=== PATIENT | male | born 1960 | race Caucasian/White ===

== ENCOUNTER 2024-12-18 08:54 | Emergency (ER) | payer OTHER, SELFPAY ==
[2024-12-18 08:58] VITALS: BP 171/98
--- NOTE | 2024-12-18 11:17 | ED.MUSCINJ ---
HPI-Injury
General
Chief Complaint: Musculo-Skeletal Complaint
Source: patient
Exam Limitations: none
Time Seen by Provider: 12/18/24 11:09
Nursing documentation reviewed up to this point in time: agreed with
History of Present Illness-Injury
Initial Injury comments:
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 He was also crawling around his
attic several days in the past week cleaning it out. 3 days ago right knee 'suddenly blew up' and became painful. He has been icing it but no improvement. R leg has become significantly discolored and swollen and warm from lower 1/3 of thigh down to
the ankle sock line. Color brawny red, warm patient states pain is 1/10 at this time. He denies chest pain or trouble breathing
Past History
Past History
ED Past Medical History: None
ED Past Surgical History: None
Social History
Tobacco: Non-smoker
Alcohol: None
Drug: None
Living: with family
Employment: Employed ([employer])
Review of Systems
Review of Systems
Allergies reviewed?: Yes
All Other Systems: ROS reviewed and negative except as documented in HPI and ROS
Constitutional: Denies fever
Respiratory: Denies trouble breathing
Cardiac: Denies chest pain
Musculoskeletal: Reports other (pre patellar swelling right knee)
Skin: Reports other (bruising, discoloration, warmth RLE)
Phy Exam
Physical Exam
Physical Exam:
GENERAL: No acute distress. A&Ox3.
CONSTITUTIONAL: Afebrile.
RESPIRATORY: Regular respirations, nonlabored, lungs clear.
CARDIOVASCULAR: Regular rate and rhythm, no murmurs, no rubs.
MUSCULOSKELETAL: Large right pre patellar effusion. Moves with ease. Well perfused.
SKIN: Warm, dry, pink. R leg significantly discolored, brawny red, ecchymotic, is swollen and warm from lower 1/3 of thigh down to the ankle sock line. Foot is unaffected. States pain is 1/10 at this time.
PSYCH: Normal mood and affect. Well kept, interactive and appropriate
NEUROLOGIC: Awake, alert and oriented. No focal neurological deficits
Injury Course
Orders/Labs/Results
Orders:
Orders
12/18/24 11:19
US Periph Venous LOWER Ext RT Urgent
Comment:
Reason For Exam: swelling, red, warm after injury
Procedures
Incision/Drainage/Joint Aspiration
R prepatellar bursa:
Anethesia: 1% Lidocaine with Epi
Preparation: cleaned with Betadine
Type of procedure: drain
Nature of site: hematoma
Description of abscess: involves one area
How much fluid was obtained?: number in mls (5)
Fluid description: bloody
Treatment: antibiotics started and bandaid applied
Additional information:
Most likely clotted so not much drainage. Ron wrap applied
MDM/Problems Addressed
Differential Diagnosis Includes:
The Differential Diagnosis includes, in no particular order and is not limited to:
- Knee bursitis
- Traumatic hematoma
- Contusion
- Joint effusion
- Infection (septic arthritis)
MDM/Problems Addressed:
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 He was also crawling around his
attic several days in the past week cleaning it out. 3 days ago right knee 'suddenly blew up' and became painful. He has been icing it but no improvement. R leg has become significantly discolored and swollen and warm from lower 1/3 of thigh down to
the ankle sock line. Color brawny red, warm patient states pain is 1/10 at this time. He denies chest pain or trouble breathing
Afebrile
US neg for DVT
There are no infectious signs or symptoms, patient moves the knee well.
It does not appear that the right matson abrasion has anything to do with the prepatellar effusion and swelling and discoloration of the leg
History and exam is consistent with a prepatellar bursitis either inflammatory or traumatic
Aspiration of king blood is consistent with traumatic effusion and this is most likely cause of the lower extremity swelling and discoloration.
After aspiration, Band-Aid applied, Ron wrap applied, distal neurovascular intact, patient did state that pain was somewhat relieved.
Patient out of bed and ambulating well
*Pulse Oximetry
SaO2: 98
Oxygen Mode of Delivery: Room air
Patient hypoxic: not evaluated
*Critical Care Note
Total Time (30-74mins, 75-104mins- exclusive of procedures): Not Applicable
ED Attending Note
-
Portions of this chart may have been created with voice recognition software.� Occasional wrong word or��sound alike� substitutions may have occurred due to the inherent limitations of voice recognition software.
Discharge Plan
Departure
Patient Disposition: Home (Routine Discharge)
Date of Disposition: 12/18/24
Time of Disposition: 12:36
Patient with high blood pressure during this ER visit?: No
Condition: Good
Discharge Problem:
traumatic bursitis right knee, Contusion of right lower leg
Instructions: Contusion (DC), Bursitis - ED discharge instructions
Prescriptions:
New
cephalexin 500 mg capsule
500 mg PO QID 7 Days Qty: 28 0RF
No Action
hydrocodone-acetaminophen 1 TABLET tablet
1 tab PO Q4HPRN PRN (Reason: severe pain) Qty: 20 0RF
cephalexin [Keflex] 500 MG capsule
500 mg PO Q6 Qty: 28 0RF
Referrals:
NONE,* [Family Provider, Internal Medicine]
Ritting,Jigar, MD [Active, Orthopedics] - As needed
Activity Restrictions/Additional Instructions:
As we discussed, wear the Ron wrap or your knee brace until the swelling and discomfort are gone.
Your ultrasound shows no clot.
I sent a prescription to your pharmacy for Keflex to take 500 mg 4 times a day for 7 days
At the end of a long day but cold compress on the knee 20 minutes off and on
Seek medical care immediately for signs of infection which may include increasing redness, swelling, pain, fever, pus drainage
Elevate the leg to the level of your heart was slightly higher when you are resting to help minimize the swelling
Interventions
Interventions:
*Risk Screen - Suicide Last Done: 12/18/24 08:59
*Neglect/Abuse Screening Last Done: 12/18/24 08:59
*Nursing Disposition Last Done: 12/18/24 13:11
ED-Musculoskeletal Assessment Last Done: 12/18/24 10:31
Discharge Date and Time
Discharge Date/Time: 12/18/24 13:11
Print Language: KINYARWANDA
[2024-12-18 13:03] VITALS: BP 146/91
== END 2024-12-18 13:11 | disposition home or self-care (01) ==
LOC: EMR 08:54
PROVIDERS: EMERGENCY PHYSICIAN Emergency Medicine
DX: S80.01XA Contusion of right knee, initial encounter (principal); S80.11XA Contusion of right lower leg, initial encounter; M70.51 Other bursitis of knee, right knee; S80.811A Abrasion, right lower leg, initial encounter; M25.461 Effusion, right knee; M79.604 Pain in right leg; W22.8XXA Striking against or struck by other objects, initial encounter
CPT/HCPCS: 99284; 10060; 93971

== ENCOUNTER 2025-02-25 10:20 | Emergency (ER) | payer OTHER, MEDICARE, SELFPAY ==
[2025-02-25 10:23] VITALS: BP 174/96
--- NOTE | 2025-02-25 11:10 | ED.GENMED ---
History of Present Illness
General
Chief Complaint: Musculo-Skeletal Complaint
Source: patient
Exam Limitations: none
Time Seen by Provider: 02/25/25 11:03
Nursing documentation reviewed up to this point in time: agreed with
History of Present Illness
History of Present Illness:
The patient is a pleasant 64-year-old man who reports that 2 weeks ago he fell from a height of 18 inches, hitting his left thigh area. He denies hitting his head or seeking medical attention. He denies being on blood thinners. Patient reports
that he developed bruising along his left outer thigh area that eventually settled in to the area just above his left knee. Patient reports that she seemed to be improving, however, over the last 2 to 3 days, he has noticed swelling of his left
knee. Patient does report chronic arthritis of the left knee. However, patient denies hitting his knee during the fall. Patient denies fever and chills. He denies skin redness. Patient reports he feels that there is lots of fluid in the left
knee.
Past History
Past History
ED Past Medical History: Other
ED Past Surgical History: Other
Social History
Tobacco: Non-smoker
Alcohol: None
Drug: None
Personal:
Living: with family
Employment: Employed ([employer])
Family History
Family History: Other
Review of Systems
Review of Systems
Allergies reviewed?: Yes
All Other Systems: ROS reviewed and negative except as documented in HPI and ROS
Constitutional: Reports no symptoms
EENT: Reports no symptoms
Respiratory: Reports no symptoms
Cardiac: Reports no symptoms
ABD/GI: Reports no symptoms
: Reports no symptoms
Musculoskeletal: Reports joint pain and joint swelling
Skin: Reports no symptoms
Neurological: Reports no symptoms
Endocrine: Reports no symptoms
Hematologic/Lymphatic: Reports bruising (Bruising of left lateral thigh and area just proximal to left knee which she attributes to a fall 2 weeks ago)
Psychiatric: Reports no symptoms
Phy Exam
Physical Exam
Physical Exam:
Physical Exam
General: no apparent distress, not acutely ill. Atraumatic appearing face and head
Neck: supple. Nontender C-spine
Heart: s1/s2 regular rate and rhythm, no murmur. equal radial pulses. Strong pulses in bilateral feet
Lungs: no acute respiratory distress. clear bilaterally. No vertebral spine tenderness
Abdomen: normal bowel sounds. not tender. no CVAT
Neuro: alert and oriented. no focal neurological deficits. 5 out of 5 strength in all upper and lower extremities. No saddle anesthesia
Skin: Ecchymotic left lateral thigh with ecchymoses spreading to area just proximal to anterior knee. No erythema of left knee. Palpable effusion of left knee
Psychiatric: well kept. interactive and cooperative
Extremities: no edema. no calf tenderness. negative homans. good distal pulses
Course
Orders/Labs/Results
Orders:
Orders
02/25/25 11:09
Knee, Left 4 or More Views [CR Knee - Left 4 Or More View*] Urgent
Comment:
Reason For Exam: knee effusion
02/25/25 12:26
Ibuprofen [Motrin] 600 mg .ROUTE .STK-MED ONE
02/25/25 12:27
Ibuprofen [Motrin] 600 mg PO NOW STA
02/25/25 12:35
Body Fluid Cell Count Urgent
What is the Body Fluid: knee
Date Specimen was Collected: 02/25/25
Time Specimen was Collected: 12:34
Comment: left
Body Fluid Crystals Routine
What is the Body Fluid: knee
Date Specimen was Collected: 02/25/25
Time Specimen was Collected: 12:34
Comment: left
Fluid Culture with Gram Stain Routine
RUTH Source: Synovial Fluid
Specimen Description:
Date Specimen was Collected: 02/25/25
Time Specimen was Collected: 12:34
Comment: Cultures & Sensitivity
02/25/25 12:40
Oxycodone [Roxicodone] 5 mg PO NOW STA
Vital Signs
Initial and Last Documented VS:
Initial Vital Signs
Temp Pulse Resp BP Pulse Ox
98.3 F 69 18 174/96 99
02/25/25 10:23 02/25/25 10:23 02/25/25 10:02/25/25 10:02/25/25 10:23
Last Documented Vital Signs
Temp Pulse Resp BP Pulse Ox
98.3 F 69 18 174/96 99
02/25/25 10:02/25/25 10:02/25/25 10:02/25/25 10:02/25/25 11:10
Procedures
Incision/Drainage/Joint Aspiration
Left Knee:
Anethesia: 1% Lidocaine with Epi
Preparation: cleaned with alcohol wipe
Type of procedure: aspiration
Nature of site: other (Effusion of left knee)
How much fluid was obtained?: number in mls (65 mL)
Fluid description: yellowish
MDM/Problems Addressed
Differential Diagnosis Includes:
Hemarthrosis of left knee, acute bursitis of left knee, septic joint of left knee
MDM/Problems Addressed:
Patient presents with acute left knee pain and swelling
Chronic conditions affecting care:
Arthritis of left knee
Acute Exacerbation and/or Progression of Chronic Illness:
Patient may have acute flare of chronic arthritis of left knee
*Radiology
Radiology exam reviewed: preliminary read by ED provider (Left knee x-ray reviewed by me. No acute fracture) and radiology read reviewed
*Pulse Oximetry
SaO2: 99
Oxygen Mode of Delivery: Room air
Patient hypoxic: no
Comment: 99% on room air
*EKG
Interpreted by ED Provider?: NA
*Corporate Strategy Associate Interpretation
Rate: Corporate Strategy Associate- N/A
*Critical Care Note
Total Time (30-74mins, 75-104mins- exclusive of procedures): Not Applicable
Data Reviewed
Review of Other/Old Records Reveals: Radiology Studies (MRI in 2014 of left knee showed large joint effusion)
Source: patient, records and spouse
Patient Management
Social determinants of health affecting care: Living situation and Strong social support
Escalation/DeEscalation of care consider admission/obs:
Patient gave verbal consent and understands risks and benefits of tapping left knee for fluid. Understands risks of infection and bleeding.
Update Note
Update Note:
Patient has had no fevers, chills or viral illness. Left knee is not erythematous. I am extremely doubtful the patient has septic arthritis of left knee. Patient's left knee aspirated for pain control
ED Attending Note
-
Portions of this chart may have been created with voice recognition software.� Occasional wrong word or��sound alike� substitutions may have occurred due to the inherent limitations of voice recognition software.
Discharge Plan
Departure
Patient Disposition: Home (Routine Discharge)
Date of Disposition: 02/25/25
Time of Disposition: 12:29
Patient with high blood pressure during this ER visit?: Yes
Condition: Good
Covid-19: Not Applicable
Discharge Problem:
Effusion of knee joint, left
Instructions: Swollen Joints, BLOOD PRESSURE
Prescriptions:
No Action
hydrocodone-acetaminophen 1 TABLET tablet
1 tab PO Q4HPRN PRN (Reason: severe pain) Qty: 20 0RF
cephalexin [Keflex] 500 MG capsule
500 mg PO Q6 Qty: 28 0RF
cephalexin 500 mg capsule
500 mg PO QID 7 Days Qty: 28 0RF
Referrals:
Evens Isaacs MD [Family Provider, Family Practice]
Activity Restrictions/Additional Instructions:
Take 600 mg of Motrin every 6-8 hours for pain and swelling of left knee. Please follow-up with your doctor soon as possible. Your doctor may have you follow-up with an orthopedist. The fluid is likely due to a flare up of arthritis of the left
knee.
Return for any fever.
Apply cool compress/ice pack to your left knee multiple times a day for 5 to 10 minutes at a time for pain and swelling.
Interventions
Interventions:
*Risk Screen - Suicide Last Done: 02/25/25 10:23
*General Assessment Last Done: 02/25/25 10:23
*Neglect/Abuse Screening Last Done: 02/25/25 10:57
*ED- Fall Risk Assessment Last Done: 02/25/25 10:56
*Nursing Disposition Last Done: 02/25/25 13:14
ED-Musculoskeletal Assessment Last Done: 02/25/25 11:05
Discharge Date and Time
Discharge Date/Time: 02/25/25 13:14
Print Language: YAKUT
[2025-02-25] MEDS: MOTRIN 600 MG PO (12:28)
[2025-02-25] MEDS: ROXICODONE 5 MG PO (12:44)
[2025-02-25 14:21] LABS: Body Fluid Second Tech HB
== END 2025-02-25 13:14 | disposition home or self-care (01) ==
LOC: EMR 10:20
PROVIDERS: EMERGENCY PHYSICIAN Emergency Medicine; FAMILY PHYSICIAN Family Medicine
DX: M25.462 Effusion, left knee (principal); S80.12XA Contusion of left lower leg, initial encounter; W17.89XA Other fall from one level to another, initial encounter; M17.12 Unilateral primary osteoarthritis, left knee
CPT/HCPCS: 99284; 20610; 73564; 87015; 87070; 87205; 89051; 89060